=== PATIENT | female | born 1955 | race American Indian/Alaskan Native ===

== ENCOUNTER → 2024-05-10 | Outpatient (CLI) | payer OTHER, SELFPAY ==
--- NOTE | 2024-05-10 09:07 | XR_ITS ---
Examination: Duplex scan of the lower extremity, unilateral right complete Date and time of exam: May 10, 2024 0923 hours INDICATIONS: Right leg pain beginning 2 weeks ago Technique: Duplex scan of the extremity veins using B-mode/grayscale imaging and Doppler spectral analysis and color flow Attention is directed to internal echogenicity, compression and augmentation involving these veins, color flow assessment, spectral analysis Findings: Major deep venous structures in the extremity demonstrate normal course and caliber. There is no evidence of deep vein thrombosis. Normal color flow and spectral analysis Popliteal cyst 24 x 30 mm Impression: Negative for DVT..
--- NOTE | 2024-05-10 09:17 | XR_ITS ---
Examination: Lumbar spine, 5 views Technique: Lumbar spine AP, lateral, coned lateral lower lumbar spine, bilateral obliques 5 views Exam date and time: May 10, 2024 0942 hours INDICATIONS: Low back pain beginning one week ago. FINDINGS: Multiple gallstones Severe osteopenia Diffuse moderate to advanced facet arthropathy No depression superior endplate L2, not seen on the knee 08/18/2019 exam No spondylolisthesis IMPRESSION: Mild fracture L2 vertebral body which may be acute Recommend CT scan lumbar spine without contrast follow-up Cholelithiasis
== END | disposition home or self-care (01) ==
PROVIDERS: PCP Nurse Practitioner Family; Referring Provider Nurse Practitioner Family; Visit Provider Nurse Practitioner Family
DX: S32.029A Unspecified fracture of second lumbar vertebra, initial encounter for closed fracture (principal); X58.XXXA Exposure to other specified factors, initial encounter; K80.20 Calculus of gallbladder without cholecystitis without obstruction; M79.651 Pain in right thigh
CPT/HCPCS: 72110; 93971

== ENCOUNTER → 2024-06-20 | Outpatient (CLI) | payer OTHER, SELFPAY ==
--- NOTE | 2024-06-20 | XR_ITS ---
Examination: CT lumbar spine, without contrast. 2-D sagittal reconstructions. 2-D coronal reconstructions. 3-D reconstructions. Date and time of exam:June 20, 2024 1217 hours INDICATIONS: Low back pain beginning 2 months ago, lumbar spine series April 2024 at L2 vertebral body fracture CTDI: vol (mGy):26.4 DLP: (mGycm):729 Technique: Multiple 1.25 mm axial sections of the lumbar spine have been obtained. 2-D sagittal and coronal reconstructions have been obtained. 3-D reconstructions have been obtained. Low dose protocols were performed. One or more of the following dose reduction techniques were used; automated exposure control, adjustment of the mA and/or KV according to patient size, use of iterative reconstruction technique. Findings: Severe osteopenia Subacute fracture L2 vertebral body, depression superior endplate, reduction in height 20% Retropulsion of this vertebral body Pedicles and laminae appear intact L4-L5 severe overall spinal stenosis, axial image 92, 6 mm central lumbar disc bulge, facet arthropathy and thickening of ligamentum flavum circumferentially narrowing the thecal sac IMPRESSION: Subacute fracture L2 vertebral body, reduction in height 20% L4-L5 severe overall spinal stenosis
--- NOTE | 2024-06-20 12:20 | XR_ITS ---
Examination: Bone densitometry Date and time of exam:June 20, 2024 1202 hours INDICATIONS: Menopause age 43 post menopausal right hip and rib fractures Technique: Lumbar spine and hip total bone mineralization values of an calculated. Peak reference and age match control results have been displayed. Findings: Lumbar spine total bone mineralization is0.778 gm/cm2. This is 2.4 standard deviations below peak reference. This is 0.3 standard deviations below age-matched controls. Hip total bone mineralization is 0.479 gm/cm2 This is 3.6 standard deviations below peak reference. This is 2.1 standard deviations below age-matched controls Impression: There is osteopenia based on lumbar spine measurements. There is osteoporosis based on hip measurements
== END | disposition home or self-care (01) ==
PROVIDERS: PCP Nurse Practitioner Family; Referring Provider Nurse Practitioner Family; Visit Provider Nurse Practitioner Family
DX: S32.028A Other fracture of second lumbar vertebra, initial encounter for closed fracture (principal); X58.XXXA Exposure to other specified factors, initial encounter; M48.061 Spinal stenosis, lumbar region without neurogenic claudication; M85.88 Other specified disorders of bone density and structure, other site; M81.0 Age-related osteoporosis without current pathological fracture
CPT/HCPCS: 72131; 77080

== ENCOUNTER → 2024-06-27 | Outpatient (CLI) | payer OTHER, SELFPAY ==
--- NOTE | 2024-06-27 10:08 | XR_ITS ---
Examination: Right knee 4 views Technique one AP oblique lateral axial right knee 4 views Exam date and time: June 27, 2024 1023 hrs. Indications: Injury to the knee after falling 3 days ago, knee pain. Findings: Prominent osteopenia Advanced narrowing medial joint space No acute fracture or patellar dislocation Impression: No acute fracture
--- NOTE | 2024-06-27 10:08 | XR_ITS ---
Examination: Bilateral hips, AP pelvis, 5 views Technique: AP, lateral views both hips, AP pelvis, 5 views Exam date and time: June 27, 2024 1001 hrs. Indications: Injury to the hips after falling 3 days ago Findings: Prominent osteopenia No right or left hip fracture or hip dislocations Bones of the pelvis intact Impression: No acute hip or pelvic fractures
== END | disposition home or self-care (01) ==
PROVIDERS: PCP Physician Assistant; Referring Provider Physician Assistant; Visit Provider Physician Assistant
DX: S79.912A Unspecified injury of left hip, initial encounter (principal); S79.911A Unspecified injury of right hip, initial encounter; S89.91XA Unspecified injury of right lower leg, initial encounter; W19.XXXA Unspecified fall, initial encounter
CPT/HCPCS: 73523; 73564

== ENCOUNTER → 2025-01-02 | Outpatient (CLI) | payer BC, SELFPAY ==
--- NOTE | 2025-01-02 15:55 | XR_ITS ---
Examination: Foot, right, 3 views Technique: AP, oblique, lateral views foot, 3 views Date and time of exam: January 02, 2025, 1605 hours INDICATIONS: Patient dropped a heavy weight on the first digit, first digit pain today FINDINGS: Severe osteopenia. No acute fracture No dislocation No foreign body IMPRESSION: No acute fracture
--- NOTE | 2025-01-02 15:55 | XR_ITS ---
Examination: Toes, right foot 3 views first digit Technique: Toes AP oblique lateral 3 views Date and time of exam: January 02, 2025, 1605 hours INDICATIONS: Patient dropped a heavy weight on the first digit today with pain FINDINGS: No acute fracture No dislocation Prominent osteopenia IMPRESSION: No acute fracture
== END | disposition home or self-care (01) ==
PROVIDERS: PCP Nurse Practitioner Family; Referring Provider Nurse Practitioner Family; Visit Provider Nurse Practitioner Family
DX: S99.921A Unspecified injury of right foot, initial encounter (principal); W22.8XXA Striking against or struck by other objects, initial encounter
CPT/HCPCS: 73630; 73660